=== PATIENT | female | born 1995 | race African-American/Black ===

== ENCOUNTER → 2017-03-04 | Outpatient (CLI) | payer SELFPAY ==
[2017-03-07 10:12] LABS: CHLAMYDIA TRACH RNA*** NOT DETECTED (NOT DETECTED); GC (NEIS GONORRHOEAE)RNA** NOT DETECTED (NOT DETECTED)
== END | disposition home or self-care (01) ==
LOC: C.LABSPEC 17:05
PROVIDERS: ATTEND Physician Assistant
DX: Z12.4 Encounter for screening for malignant neoplasm of cervix (principal)

== ENCOUNTER 2017-07-29 12:46 | Emergency (ER) | payer OTHER ==
[~2017-07-29] VITALS: Ht 149.9 cm; Wt 58.5 kg
[2017-07-29 13:08] VITALS: TEMP 37; Ht 149.9 cm; Wt 58.5 kg
[2017-07-29] MEDS ORDERED: IBUPROFEN 600 MG TAB PO STA (13:29)
[2017-07-29] MEDS ORDERED: BCPILLS PO (13:49)
[2017-07-29 14:04] LABS: INFLUENZA B ANTIGEN Neg for Influ B (NEG)
--- NOTE | 2017-07-29 14:23 | EMERGENCY ROOM VISIT NOTE ---
History First contact with patient: 13:22 Chief Complaint: FLU LIKE SX Stated Complaint: BODY ACHES, LOSS OF APPETITE, DIZZY History of Present Illness The patient is a 21 year old female who presents to the Emergency Room with complaints of body aches, fatigue, headache, loss of appetite, dizziness, runny nose, congestion and mild nonproductive cough. The patient has had the symptoms for the past 2 days. She denies any known sick contacts. The patient did not get the influenza immunization this year. She has not taken any medicines today for her discomfort, and rates her pain a 6 out of 10. Review of Systems 10 system review was performed and was negative except for pertinent positives and negatives as indicated in history of present illness Past Medical/Surgical History Medical Problems: (1) Pneumonia Surgical Problems: (1) No history of previous surgery Family History FH: diabetes mellitus FH: hypertension Social History Smoking Status: Never Smoker Alcohol Use: none Marital Status: single Occupation Status: [employer] student Current/Historical Medications Scheduled Control Pills ( Control Pills), 1 TAB PO DAILY Physical Exam Vital Signs Date Time Temp Pulse Resp B/P (MAP) Pulse Ox O2 Delivery O2 Flow Rate FiO2 07/29/17 13:08 37.0 92 18 114/75 98 Room Air Physical Exam CONSTITUTIONAL: Healthy and well nourished. Alert and oriented X 3 with positive affect. She does not appear in any acute distress, nor did she appear toxic. HEENT: Normocephalic, atraumatic. Pupils equal, round and reactive. Ears and nares are clear except for mild rhinorrhea area no facial edema or erythema. No scleral icterus or conjunctival injection. OROPHARYNX: Minimal posterior pharyngeal erythema without tonsillar hypertrophy or exudates. NECK: Full active range of motion without discomfort. No nuchal rigidity. No meningeal signs. RESPIRATORY: Clear to auscultation bilaterally with no wheezing, crackles, rhonchi or stridor. CARDIOVASCULAR: Regular rate and rhythm with no murmurs, rubs or gallops. GASTROINTESTINAL: Bowel sounds present in all quadrants. Soft and nontender to palpation. MUSCULOSKELETAL: Full range of motion of all joints without discomfort. INTEGUMENTARY: No rash or other significant dermatologic conditions noted. HEMATOLOGIC: No ecchymosis or petechiae. NEUROLOGIC: No focal neurologic deficits noted. Medical Decision & Procedures Laboratory Results Test 07/29/17 13:05 Influenza Type A Antigen Neg for Influ A (NEG) Influenza Type B Antigen Neg for Influ B (NEG) Influenza screen was negative. Medications Administered Medications (Trade) Dose Ordered Sig/Taniya Route Start Time Stop Time Status Last Admin Dose Admin Ibuprofen (Motrin Tab) 600 mg NOW STAT PO 07/29/17 13:29 07/29/17 13:30 DC 07/29/17 13:34 600 MG ED Course Patient history and physical exam were performed. Nurse's notes were reviewed. Vital signs were reviewed and completely normal. The patient was administered ibuprofen 600 mg for myalgias. Influenza screen was negative. The patient was advised that she likely has a viral upper respiratory infection. She was instructed to rest and remain well-hydrated. Ibuprofen and Tylenol in alternating fashion as needed for pain and fever. She was provided additional instructions for OTC relief of symptoms. She was instructed to follow-up with [facility] if symptoms are not improving within the next week. She was instructed to return here for any significantly worsening symptoms. The patient was happy with plan of care, voiced understanding of all discharge instructions, and reported feeling better with the ibuprofen that was administered. Medical Decision Blood Pressure Screening Patient's blood pressure: Normal blood pressure Impression Primary Impression: Viral upper respiratory infection Departure Information Referrals No Doctor, Assigned (PCP) [facility]
[2017-07-29 14:24] VITALS: BP 120/68; PULSE 84; O2SAT 95
== END 2017-07-29 14:25 | disposition home or self-care (01) ==
LOC: C.EDB 12:47 → C.EDD 14:25
DX: J06.9 Acute upper respiratory infection, unspecified (principal); M79.1 Myalgia; Z79.3 Long term (current) use of hormonal contraceptives; Z83.3 Family history of diabetes mellitus; Z82.49 Family history of ischemic heart disease and other diseases of the circulatory system